=== PATIENT | male | born 1965 ===

== ENCOUNTER 2019-01-05 23:15 | Emergency (ER) | payer SELFPAY ==
[~2019-01-05] VITALS: Ht 162.6 cm; Wt 93.4 kg
--- NOTE | 2019-01-06 01:05 | RAD ---
PQRS Compliance statement: One or more of the following individualized dose reduction techniques were utilized for this examination: 1. Automated exposure control. 2. Adjustment of the mA and/or kV according to patient size. 3. Use of iterative reconstruction technique. Indication:right sided weakness TECHNIQUE: CT head without IV contrast COMPARISON:None FINDINGS: No pathologic extra-axial or intra-axial fluid collection. The ventricles and basal cisterns are within normal limits. No acute intracranial bleed. No focal loss of redman-white differentiation. Orbits within normal limits. No suspicious calvarial lesion. Visualized paranasal sinuses and mastoid air cells are clear. IMPRESSION: No acute intracranial process. If concern for acute ischemic stroke is high, please consider MRI brain. Electronically signed by: Farhat Martinez DO (01/06/2019 1:03 AM) [facility]
--- NOTE | 2019-01-06 01:12 | PHYS DOC ---
Past Medical History Past Medical History: High Cholesterol, Hypertension, Other Additional Past Medical Histor: ear infection Past Surgical History: Other Additional Past Surgical Histo: left knee surgery, ear surgery Alcohol Use: Rarely Drug Use: None Adult General Chief Complaint Chief Complaint: MULTIPLE COMPLAINTS [facility] HPI 53-year-old male presents with a chief complaint of right-sided ear pain, right sided EYE lid weakness and right-sided facial weakness. Patient states symptoms started 2 days ago and have progressively become worse. Patient does have a difficult with closing his right eyelid. He states he's having difficulty sipping fluids through a straw. Patient states right ear pain has been on going to 2 weeks. There is been no upper extremity or lower extremity weakness. Patient also complains of left lower back pain. Patient drove himself and ambulated into the ER. Review of Systems Review of Systems Constitutional: Denies fever or chills [] Eyes: Denies change in visual acuity, redness, or eye pain [] HENT: Denies nasal congestion or sore throat [Right Ear pain] Respiratory: Denies cough or shortness of breath [] Cardiovascular: No additional information not addressed in HPI [] GI: Denies abdominal pain, nausea, vomiting, bloody stools or diarrhea [] : Denies dysuria or hematuria [] Musculoskeletal: Denies back pain or joint pain [] Integument: Denies rash or skin lesions [] Neurologic: Denies headache, [right facial weakness] Endocrine: Denies polyuria or polydipsia [] All other systems were reviewed and found to be within normal limits, except as documented in this note. Allergies Allergies Allergies Coded Allergies Type Severity Reaction Last Updated Verified No Known Drug Allergies 12/29/15 No Physical Exam Physical Exam Constitutional: Well developed, well nourished, no acute distress, non-toxic appearance. [] HENT: Normocephalic, atraumatic, bilateral external ears normal, oropharynx moist, no oral exudates, nose normal. [] Eyes: PERRLA, EOMI, conjunctiva normal, no discharge. [] Neck: Normal range of motion, no tenderness, supple, no stridor. [] Cardiovascular:Heart rate regular rhythm, no murmur [] Lungs & Thorax: Bilateral breath sounds clear to auscultation [] Abdomen: Bowel sounds normal, soft, no tenderness, no masses, no pulsatile masses. [] Skin: Warm, dry, no erythema, no rash. [] Back: No tenderness, no CVA tenderness. [] Extremities: No tenderness, no cyanosis, no clubbing, ROM intact, no edema. [] Neurologic: Alert and oriented X 3, normal motor function, normal sensory function, [right sided eye lid weakness-- difficulty closing right eye, asymmetric right smile, asymmetric right forehead. Patient ambulates with steady gait, equal bilateral tank terminal gauger strengths.] Psychologic: Affect normal, judgement normal, mood normal. [] Current Patient Data Vital Signs Vital Signs Date Time Temp Pulse Resp B/P (MAP) Pulse Ox O2 Delivery O2 Flow Rate FiO2 01/06/19 01:45 78 18 208/100 (136) 96 Room Air 01/06/19 00:02 98.5 98.5 EKG EKG [] Radiology/Procedures Radiology/Procedures [] Course & Med Decision Making Course & Med Decision Making Pertinent Labs and Imaging studies reviewed. (See chart for details) []CT head without any acute abnormalities. 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 Patient will be discharged home with prednisone and acyclovir and tylenol #3. Dragon Disclaimer Dragon Disclaimer This electronic medical record was generated, in whole or in part, using a voice recognition dictation system. Departure Departure Referrals: KASI TOVAR MD (PCP) Scripts Acetaminophen With Codeine (TYLENOL WITH CODEINE #3 TABLET) 1 Each Tablet 1 TAB PO PRN Q4HRS PRN for PAIN for 10 Days, #20 TAB Prov: CITLALLI CAMARGO I DO 01/06/19 Acyclovir (ACYCLOVIR) 400 Mg Tablet 400 MG PO 5XDAY for 10 Days, #50 TAB Prov: CITLALLI CAMARGO I DO 01/06/19 Prednisone (PREDNISONE) 2.5 Mg Tablet 25 MG PO DAILY for 10 Days, #100 TAB Prov: CITLALLI CAMARGO I DO 01/06/19 CITLALLI CAMARGO DO Jan 06, 2019 01:12
[2019-01-06] MEDS ORDERED: ACYC400T PO (01:26)
[2019-01-06] MEDS ORDERED: PRED2.5T PO (01:26)
[2019-01-06] MEDS ORDERED: ACET-704 PO (01:32)
[2019-01-06 01:45] VITALS: BP 208/100
== END 2019-01-06 01:49 | disposition home or self-care (01) ==
LOC: EDBD 23:15 → ER 23:15
DX: H92.01 Otalgia, right ear (principal); R29.810 Facial weakness; R53.1 Weakness; M54.5 Low back pain; E78.00 Pure hypercholesterolemia, unspecified; I10 Essential (primary) hypertension
CPT/HCPCS: 70450; 99284-25

== ENCOUNTER 2021-08-30 17:18 | Emergency (ER) | payer OTHER ==
[~2021-08-30] VITALS: Ht 147.3 cm; Wt 70.0 kg
[~2021-08-30 17:18] MED LIST: ACET-704 PO; ACYC-12 PO; PRED2.5T PO
[2021-08-30 22:59] LABS: BASO # 0.1 x10^3/uL (0.0-0.2); BASO % 1 % (0-3); EOS # 0.3 x10^3/uL (0.0-0.7); EOS % 3 % (0-3); HEMATOCRIT 26.1 % (39.0-53.0); HEMOGLOBIN 7.8 g/dL (13.0-17.5); LYMPH # 2.6 x10^3/uL (1.0-4.8); LYMPH % 29 % (24-48); MEAN CORPUSCULAR HEMOGLOBIN 19 pg (25-35); MEAN CORPUSCULAR HGB CONC 30 g/dL (31-37); MEAN CORPUSCULAR VOLUME 65 fL (79-100); MONO # 0.7 x10^3/uL (0.0-1.1); MONO % 9 % (0-9); NEUT % 58 % (31-73); PLATELET COUNT 538 x10^3/uL (140-400); RED BLOOD COUNT 4.04 x10^6/uL (4.30-5.70); RED CELL DISTRIBUTION WIDTH 17.4 % (11.5-14.5); WHITE BLOOD COUNT 8.7 x10^3/uL (4.0-11.0)
[2021-08-30 23:11] LABS: CALCIUM 8.8 mg/dL (8.5-10.1); CREATININE 0.7 mg/dL (0.7-1.3); GFR 116.7; POTASSIUM 3.7 mmol/L (3.5-5.1)
[2021-08-30 23:17] LABS: ALBUMIN 3.8 g/dL (3.4-5.0); ALBUMIN/GLOBULIN RATIO 1.1 (1.0-1.7); MAGNESIUM 2.1 mg/dL (1.8-2.4); TOTAL BILIRUBIN 0.3 mg/dL (0.2-1.0); TOTAL PROTEIN 7.3 g/dL (6.4-8.2)
[2021-08-30 23:36] LABS: PLT ESTIMATE INCREASED (ADEQUATE)
[2021-08-30 23:39] LABS: ANISOCYTOSIS SLIGHT; HYPOCHROMIA MARKED; MICROCYTOSIS MARKED; OVALOCYTES FEW
[2021-08-30] MEDS ORDERED: KETOROLAC 15 MG/ML VIAL. IVP ONE (23:45)
--- NOTE | 2021-08-30 23:55 | RAD ---
XR SHOULDER_LEFT 2+ VIEWS 08/30/2021 10:31 PM INDICATION: Left shoulder pain COMPARISON: None available. TECHNIQUE: 3 views of the left shoulder are provided. FINDINGS/ IMPRESSION: There is no acute fracture or dislocation. Joint spaces are maintained. Bone mineralization is within normal limits. Regional soft tissues are within normal limits. There is no soft tissue gas or osseou s erosion. No radiopaque foreign body. Electronically signed by: Erendira Pollack MD (08/30/2021 11:53 PM) [facility]
--- NOTE | 2021-08-30 23:55 | RAD ---
XR CHEST 1V 08/30/2021 10:31 PM INDICATION: Left shoulder pain COMPARISON: None available TECHNIQUE: Portable frontal view of the chest is provided. FINDINGS: The cardiomediastinal silhouette is within normal limits. Lungs are clear. There are no significant pleural effusions. There is no pulmonary vascular congestion. No pneumothora x. No suspicious osseous abnormality. IMPRESSION: There is no acute cardiopulmonary process. Electronically signed by: Erendira Pollack MD (08/30/2021 11:53 PM) [facility]
[2021-08-31 00:45] VITALS: BP 108/54
[2021-08-31] MEDS ORDERED: FERR325T14 PO (00:48)
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
--- NOTE | 2021-08-31 01:49 | EKG ---
[facility] [address] [place] [address] Test Date: 2021-08-30 Test Time: 22:21:07 Pat Name: ABELINO ALAMO Department: Room: Gender: Bulk Station Agent: : 1965 Requested By: THIERRY BURKS Order Number: [id number] Reading MD: Neno Rai Measurements Intervals [place] Rate: 88 P: 56 ID: [id number] QRS: 26 QRSD: 90 T: 14 QT: 360 QTc: 439 Interpretive Statements SINUS RHYTHM RI6.02 No previous ECG available for comparison Electronically Signed On 09-03-2021 9:44:06 NIGHT CLEANER by Neno Rai
== END 2021-08-31 01:00 | disposition home or self-care (01) ==
LOC: ER 17:18
DX: M25.512 Pain in left shoulder (principal); M54.6 Pain in thoracic spine; M25.551 Pain in right hip; M79.645 Pain in left finger(s); E78.00 Pure hypercholesterolemia, unspecified; I10 Essential (primary) hypertension; Z87.891 Personal history of nicotine dependence; V49.49XA Driver injured in collision with other motor vehicles in traffic accident, initial encounter; Y93.89 Activity, other specified; Y92.488 Other paved roadways as the place of occurrence of the external cause; Y99.8 Other external cause status
CPT/HCPCS: 36415; 71045; 73030; 80053; 83690; 83735; 83880; 84484; 85025; 93005; 96374; 99285; J1885